=== PATIENT | female | born 1975 | race African-American/Black ===

== ENCOUNTER 2018-03-11 00:07 | Emergency (ER) | payer OTHER ==
[~2018-03-11] VITALS: Ht 167.6 cm; Wt 49.9 kg
[2018-03-11 00:10] VITALS: BP 137/84
--- NOTE | 2018-03-11 00:39 | Emergency Room Report ---
History of Present Illness General Chief Complaint: Seizure Source: Patient, EMS Present Illness HPI Is a 42-year-old female brought in with chief complaint of seizure. She was at [employer]. Per EMS, witnesses said she lay down and claimed that she had a seizure. There was no trauma. No oral laceration. No incontinence of bowel or urine. Now she is very sleepy. She did tell me that she did cocaine tonight. No other complaint. She is taking Keppra. Allergies: Coded Allergies: No Known Allergies (Unverified , 03/10/18) Patient History Past Medical History: see triage record, old chart reviewed Past Surgical History: other Pertinent Family History: none Social History: Reports: smoking, alcohol use, drug use Last Menstrual Period: unk Now: No Immunizations: other Reviewed Nursing Documentation: PMH: Agreed; PSxH: Agreed Nursing Documentation-PMH Past Medical History: No History, Except For History Of Psychiatric Problem: Yes - anxiety Hx Seizures: Yes - epilepsy Review of Systems Eye: Denies: eye pain, blurred vision ENT: Denies: ear pain, nose congestion, throat swelling Respiratory: Denies: cough, shortness of breath Cardiovascular: Denies: chest pain, palpitations Gastrointestinal: Denies: abdominal pain, diarrhea, nausea, vomiting Musculoskeletal: Denies: back pain, joint pain Skin: Denies: rash Neurological: Denies: headache, numbness Endocrine: Denies: increased thirst, increased urine Hematologic/Lymphatic: Denies: easy bruising All Other Systems: negative except mentioned in HPI Physical Exam Vital Signs Date Time Temp Pulse Resp B/P (MAP) Pulse Ox O2 Delivery O2 Flow Rate FiO2 03/10/18 23:50 61 18 137/84 100 Room Air vitals normal Sp02 EP Interpretation: reviewed, normal General Appearance: well appearing, no apparent distress, other - very sleepy Head: normocephalic, atraumatic Eyes: bilateral eye PERRL, bilateral eye EOMI ENT: hearing grossly normal, normal pharynx Neck: full range of motion, supple, no meningismus Respiratory: chest non-tender, lungs clear, normal breath sounds Cardiovascular #1: regular rate, rhythm, no murmur Gastrointestinal: normal bowel sounds, non tender, no mass, no organomegaly, no bruit, non-distended Musculoskeletal: back normal, normal range of motion Neurologic: grossly normal Psychiatric: mood/affect normal Skin: warm/dry Medical Decision Making Diagnostic Impression: Primary Impression: Cocaine abuse Additional Impression: Altered mental state Qualified Codes: R41.82 - Altered mental status, unspecified ER Course Is a with an altered mental status from drug abuse. I see no evidence of any seizure activity. We'll observe until clinical sobriety. Patient is now awake. No suicidal thoughts homicidal thought. We will discharge home. Last Vital Signs Date Time Temp Pulse Resp B/P (MAP) Pulse Ox O2 Delivery O2 Flow Rate FiO2 03/10/18 23:50 61 18 137/84 100 Room Air Status: improved Disposition: HOME, SELF-CARE Condition: Stable Additional Instructions: Stop using drugs. Follow-up your doctor in 7 days. Return if worse. OTONIEL TORRES M.D. Mar 11, 2018 00:39
[2018-03-11 04:08] VITALS: BP 104/67
[2018-03-11 05:21] VITALS: BP 104/67
== END 2018-03-11 05:22 | disposition home or self-care (01) ==
LOC: EDBD 00:07 → EMR 00:37
DX: F14.10 Cocaine abuse, uncomplicated (principal)
CPT/HCPCS: 99282